=== PATIENT | female | born 1950 | race Caucasian/White ===

== ENCOUNTER 2018-10-24 12:39 | Emergency (ER) | payer MEDICARE ==
[~2018-10-24] VITALS: Ht 154.9 cm; Wt 65.8 kg
[~2018-10-24 12:39] MED LIST: ESTR1TAB15 PO; HYDR-2145 PO; LOSA50TA86 PO; PROP20TA PO
--- NOTE | 2018-10-24 13:09 | PHYS DOC ---
Past History Past Medical History: Anxiety, Hypertension Past Surgical History: Cholecystectomy, Hysterectomy Additional Past Surgical Histo: breast augmentation Smoking: Cigarettes Additional Smoking Information: PACK/DAY Alcohol Use: Occasionally Drug Use: None Adult General Chief Complaint Chief Complaint: NAUSEA/VOMITING/DIARRHEA HPI HPI 68-year-old female presents to emergency Department with complaints of nausea and vomiting. Patient states she was eatingyesterday felt it get lodged in her esophagus. She had episodes of nausea and vomiting yesterday, she thought she may have passed a concern for bolus however has had difficulty getting liquids as well as phlegm down today. She states nothing stays down. She was seen by her primary care physician, x-ray was ordered without acute findings. Patient presented to the emergency department for further evaluation. She denies any chest pain or shortness of breath Review of Systems Review of Systems Constitutional: Denies fever or chills [] Respiratory: Denies cough or shortness of breath [] Cardiovascular: No additional information not addressed in HPI [] GI: Nausea, vomiting] Musculoskeletal: Denies back pain or joint pain [] Integument: Denies rash or skin lesions [] Neurologic: Denies headache, focal weakness or sensory changes [] All other systems were reviewed and found to be within normal limits, except as documented in this note. Current Medications Current Medications Current Medications Medications (Trade) Dose Ordered Sig/Denia Start Time Stop Time Status Last Admin Dose Admin Glucagon (Glucagen Kit) 1 mg 1X ONCE 10/24/18 13:15 10/24/18 13:16 UNV Allergies Allergies Allergies Coded Allergies Type Severity Reaction Last Updated Verified codeine Allergy 01/20/13 Yes Physical Exam Physical Exam Constitutional: Well developed, well nourished, no distress HENT: Normocephalic, atraumatic, bilateral external ears normal, oropharynx moist, no oral exudates, nose normal. [] Eyes: PERRLA, EOMI, conjunctiva normal, no discharge. [] Cardiovascular:Heart rate regular rhythm, no murmur [] Lungs & Thorax: Bilateral breath sounds clear to auscultation [] Abdomen: Bowel sounds normal, soft, no tenderness, no masses, no pulsatile m asses. [] Skin: Warm, dry, no erythema, no rash. [] Extremities: No tenderness, no edema. [] Neurologic: Alert and oriented X 3, no focal deficits noted. [] Psychologic: Affect normal, judgement normal, mood normal. [] Current Patient Data Vital Signs Vital Signs Date Time Temp Pulse Resp B/P (MAP) Pulse Ox O2 Delivery O2 Flow Rate FiO2 10/24/18 12:45 98.4 84 20 98 Room Air EKG EKG [] Radiology/Procedures Radiology/Procedures [] Course & Med Decision Making Course & Med Decision Making Pertinent Labs and Imaging studies reviewed. (See chart for details) []68-year-old female presents to emergency Department with complaints of nausea and vomiting. Patient states she was eatingyesterday felt it get lodged in her esophagus. She had episodes of nausea and vomiting yesterday, she thought she may have passed a concern for bolus however has had difficulty getting liquids as well as phlegm down today. She states nothing stays down. She was seen by her primary care physician, x-ray was ordered without acute findings. Patient presented to the emergency department for further evaluation. She denies any chest pain or shortness of breath. Glucagon IM, po challenge with continued vomiting. She has difficulty with oral secretions as well. Discussed with PCP (Khanh) would like patient to see GI - will consult. Discussed with PA for GI, they asked for transfer to [facility] and will take to GI lab for scope. Called [facility] for transfer and discussed with Dr. Rodriguez. Napoleon Disclaimer Napoleon Disclaimer This electronic medical record was generated, in whole or in part, using a voice recognition dictation system. Departure Departure: Impression: Primary Impression: Nausea & vomiting Additional Impression: Bolus impaction of digestive tract Disposition: XFER SHT-TRM HOSP Condition: STABLE Referrals: GISEL GRAY MD (PCP) Problem Qualifiers Primary Impression: Nausea & vomiting Vomiting type: unspecified Vomiting Intractability: intractable Qualified Codes: R11.2 - Nausea with vomiting, unspecified CATHERINE FERNÁNDEZ MD Oct 24, 2018 13:09
[2018-10-24] MEDS ORDERED: GLUCAGON,HUMAN RECOMBINANT 1 MG KIT. IM ONE (13:45)
[2018-10-24] MEDS ORDERED: ONDANSETRON PF 4 MG/2 ML VIAL. IV ONE (14:00)
[2018-10-24 14:16] VITALS: BP 127/67
== END 2018-10-24 15:29 | disposition short-term general hospital (02) ==
LOC: ER 12:39
DX: K56.49 Other impaction of intestine (principal); R11.2 Nausea with vomiting, unspecified; F41.9 Anxiety disorder, unspecified; I10 Essential (primary) hypertension; Z90.49 Acquired absence of other specified parts of digestive tract; Z90.710 Acquired absence of both cervix and uterus; F17.210 Nicotine dependence, cigarettes, uncomplicated; Z88.5 Allergy status to narcotic agent
CPT/HCPCS: 96372; 96374; 99285; J1610; J2405

== ENCOUNTER → 2021-04-22 | Outpatient (CLI) | payer MEDICARE ==
--- NOTE | 2021-04-22 12:05 | RAD ---
Exam Date: 04/22/2021 11:[address] HEAD/BRAIN WO Indication: Reason: FALL ON ICE TODAY, OFF BALANCE, RINGING IN EARS, HEADACHE / Spl. Instructions: / History: . TECHNIQUE: Head CT was performed without intravenous contrast. One or more of the following dose re duction techniques were utilized: *Automated exposure control (AEC) *Adjustment of mA and/or kV according to patient size *Use of iterative reconstruction technique *CT scan done according to ALARA, or ALARA/IMAGE GENTLY FINDINGS: The ventricles and sulci are normal for the patient's stated age. There is no evidence of acute int racranial hemorrhage, extra-axial collection, mass effect, midline shift, or acute territorial infarc t. No lesion of the skull base or the calvarium is seen. The visualized paranasal sinuses, mastoid ai r cells and orbits are normal in appearance. IMPRESSION: No evidence for acute intracranial abnormality. Electronically signed by: Hasmukh Jeffries MD (04/22/2021 12:02 PM) [id number]
== END ==
LOC: RAD 11:36
PROVIDERS: ATTEND Nurse Practitioner Adult Health
DX: R51.9 Headache, unspecified (principal); H93.13 Tinnitus, bilateral; W00.9XXA Unspecified fall due to ice and snow, initial encounter; Y93.89 Activity, other specified; Y92.89 Other specified places as the place of occurrence of the external cause; Y99.8 Other external cause status
CPT/HCPCS: 70450